=== PATIENT | female | born 1955 | race Caucasian/White ===

== ENCOUNTER 2024-12-06 06:21 | Day surgery (SDC) | payer MEDICARE, OTHER, SELFPAY ==
[2024-12-06 09:38] VITALS: BMI 36.5
[2024-12-06 09:40] VITALS: BMI 36.5
[2024-12-06 09:42] VITALS: BP 136/80
[2024-12-06 11:16] VITALS: BP 94/43
[2024-12-06 11:30] VITALS: BP 112/61
[2024-12-06 11:45] VITALS: BP 118/62
== END 2024-12-06 11:58 | disposition home or self-care (01) ==
LOC: SDS 06:21
PROVIDERS: ATTENDING PHYSICIAN Internal Medicine Gastroenterology; FAMILY PHYSICIAN Family Medicine
PROC: 0DJD8ZZ Inspection of Lower Intestinal Tract, Via Natural or Artificial Opening Endoscopic (ICD-10-PCS; 2024-12-06)
DX: K64.9 Unspecified hemorrhoids (principal)
CPT/HCPCS: 45341